=== PATIENT | female | born 2005 | race Caucasian/White ===

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

== ENCOUNTER 2024-10-17 17:43 | Emergency (ER) | payer OTHER, SELFPAY ==
--- OUTSIDE RECORDS SUMMARY | 2024-10-17 17:45 | XMS_ITS | Clinical Summary ---
Author Organization [facility] [employer] [facility] Address [address] [place] [id number] Care Team Providers Care Business Architect Name Role Phone Rebecca Snell Primary Care Provider Allergies No known active allergies Medications citalopram (CELEXA) 20 mg tabletIndicatio ns:FLAKO (generalized anxiety disorder),MDD (major depressive disorder), recurrent episode, moderate (HC) Take 1 Tablet (20 mg) by mouth once daily in the morning. 90 Tablet 3 06/20/2024 Active hydrOXYzine HCL (ATARAX) 25 mg tabletIndicatio ns:FLAKO (generalized anxiety disorder),MDD (major depressive disorder), recurrent episode, moderate (HC),Difficulty staying asleep Take 1 Tablet (25 mg) by mouth at bedtime if needed for Anxiety (sleep). 90 Tablet 3 06/20/2024 Active Active Problems No known active problems Encounters Date Type Department Care Team Description 09/22/2024 10:05 AM CDT Ancillary Procedure [facility] [address] [place] [address] 09/22/2024 9:40 AM CDT Office Visit [facility] [address] [place], [place] [id number] Carlton Gruber MD Wrist Pain/problem (right) 09/21/2024 Travel 08/08/2024 9:35 AM MACHINE CHAIN MAKER Office Visit [facility] [address] [place] [address] Rebecca Snell PA Conjunctivitis (right eye x1 day) 08/07/2024 Travel from Last 3 Months Immunizations Immunization Administration Dates Next Due [id number] (Pediarix) 03/09/2004,01/13/2004 DTaP-IPV (Kinrix) 01/28/2009 HIB PRP-OMP (PedvaxHIB) 06/01/2004,03/09/2004 HPV 9 (Gardasil 9) 06/12/2023,10/22/2017 Hepatitis B (Adult) 01/31/2024 Hib Conjugate, Unspecified 01/13/2004 Influenza Virus, Unspecified 01/28/2009,06/05/20 07,07/23/2006 MENINGOCOCCAL VACCINE 2 VIAL [id number] (MENVEO) 01/13/2016 MMR 01/28/2009,11/10/2004 Meningococcal Vaccine (Menactra) 03/31/2021 Pneumococcal conj 7-Valent (Prevnar 7) 4,03/09/2004,01/13/2004 Tdap 01/13/2016 Tuberculin (PPD) 02/12/2024,01/22/2024 Varicella Vaccine 01/28/2009,11/10/2004 Family History Medical History Relation Name Comments No Known Problems Brother No Known Problems Father No Known Problems Mother No Known Problems Sister Relation Name Status Comments Brother Father Mother Sister Social History Tobacco Use Types Packs/Day Years Used Date Smoking Tobacco: Never Passive Smoke Exposure: Never Smokeless Tobacco: Never Tobacco Cessation:Counseling Given: Not Answered Alcohol Use Standard Drinks/Week Comments Yes 0 (1 standard drink = 0.6 oz pur e alcohol) rare PHQ-2 Answer Date Recorded PHQ-2 TOTAL SCORE 3 09/25/2024 Social Connections Answer Date Recorded Do you often feel lonely or isolated from those around you? 0 09/22/2024 Financial Resource Strain Answer Date R ecorded Difficulty of Paying Living Expenses 3 09/22/2024 Difficulty of Paying Living Expenses Not on file 09/22/2024 Food Insecurity Answer Date Recorded Do you worry your food will run out before you are able to buy more? 1 09/22/2024 Transportation Needs Answer Date Record ed Does lack of transportation keep you from medica l appointments? 1 09/22/2024 Does lack of transportation keep you from work, meetings or getting things that you need? 1 09/22/2024 Housing Stability Answer Date Recorded What is your housing situation today? 1 09/22/2024 Utilities Answer Date Recorded Do you have trouble paying f or utilities (for example, heat, electricity, water, phone)? 1 09/22/2024 Comments No Sex and Gender Information Value Date Recorded Sex Assigned at Not on file Legal Sex Female 10:36 AM CDT Gender Identity Not on file Sexual Orientation Not on file Obstetrics History Last Filed Vital Signs Vital Sign Reading Time Taken Comments Blood Pressure 110/70 09/22/2024 9:45 AM CDT Pulse 78 09/22/2024 9:45 AM CDT Temperature 36.9 C (98.4 F) 08/08/2024 9:36 AM MACHINE CHAIN MAKER Respiratory Rate 16 06/12/2023 12:59 PM MACHINE CHAIN MAKER Oxygen Saturation 98% 08/08/2024 9:36 AM MACHINE CHAIN MAKER Inhaled Oxygen Concentration - - Weight 57.6 kg (127 lb) 09/22/2024 9:45 AM CDT w ith shoes Height 160 cm (5' 2.99) 09/22/2024 9:45 AM CDT Body Mass Index 22.5 09/22/2024 9:45 AM CDT Plan of Treatment Health Maintenance Due Date Last Done Comments COVID-19 vaccine series ( season) 2024 08/23/2021, 08/01/2021 Chlamydia for age 16-24 04/02/2024 04/02/20 23 ([facility] Well Child Check for age 3-20 06/12/2024 06/12/2023 Influenza Vaccine (Season Ended) 2025 01/28/2009, 06/05/2007, 07/23/2006 BMI (ht and wt on same day) for age 18+ 09/22/2025 09/22/2024, 06/20/2024, 07/12/2023, Additional history exists Depression screening for age 12+ 09/25/2025 09/25/2024, 06/20/2024, 02/14/2024, Additional history exists Tetanus booster 01/12/2026 01/13/2016 Pneumococcal series for age 6-49 Aged Out 06/01/2004, 03/09/2004, 01/13/2004 No longer eligible based on patient's age to complete this topic Tdap Completed 01/13/2016 Meningococcal series for age 11-21 Completed 03/31/2021, 01/13/2016 HIV for age 15-65 Completed 06/12/2023 HPV series for age 9-26 Completed 06/12/2023, 10/22 Hepatitis C screening for age 18-79 Completed 06/12/2023 Procedures Procedure Name Priority Date/Time Associated Diagnosis Comments XR WRIST 3 VIEWS RIGHT Routine 09/22/2024 10:09 AM CDT Right wrist pain ANTI HIV 1/2 Routine 06/12/2023 1:46 PM MACHINE CHAIN MAKER Screening for HIV (human immunodeficiency virus) ANTI HCV Routine 06/12/2023 1:46 PM MACHINE CHAIN MAKER Need for hepatitis C screening test from Last 3 Months or Most Recently Relevant to Health Maintenance Results * XR WRIST 3 OR MORE VIEWS RIGHT (09/22/2024 10:09 AM CDT) Anatomical Region Laterality Modality WRISTS, WRIST R Computed Radiogr aphy 09/23/2024 6:08 AM CDT Impressions 09/23/2024 6:08 AM CDT 1. No acute fracture or malalignment. 2. Joint spaces are maintained. Dictated by Rolando Chambers MD @ 09/23/2024 6:08:25 AM (Electronically Signed) Narrative 09/23/2024 6:08 AM CDT For Patients: As a result of the Cures Act, medical imaging exams and procedure reports are released immediately into your electronic medical record. You may view this report before your referring provider. If you have questions, please contact your health care provider. HISTORY: Right wrist pain. TECHNIQUE: Three views of the right wrist. COMPARISON: No prior. FINDINGS: No acute fracture or malalignment. Joint spaces are maintained. No erosive change or chondrocalcinosis. Procedure Note Rolando Chambers MD - 09/23/2024 For Patients: As a result of the Century Cures Act, medical imagingexams and procedure reports are released immediately into your electronicmedical record. You may view this report before your referring provider.If you have questions, please contact your health care provider. HISTORY: Right wrist pain. TECHNIQUE: Three views of the right wrist. COMPARISON: No prior. FINDINGS: No acute fracture or malalignment. Joint spaces are maintained. No erosivechange or chondrocalcinosis. IMPRESSION: 1. No acute fracture or malalignment. 2. Joint spaces are maintained. Dictated by Rolando Chambers MD @ 09/23/2024 6:08:25 AM (Electronically Signed) us Carlton Gruber MD GENERAL IMAGING Final Result * ANTI HCV (06/12/2023 1:46 PM MACHINE CHAIN MAKER) Pathologist [facility] [place] HEPATITIS C ANTIBODY Non-Reacti ve Non-React talib 06/12/2023 10:01 PM MACHINE CHAIN MAKER [facility] Comment:Please note, per www .CDC.gov: If a patient is known to be at high risk of HCV infection, or is symptomatic, and the physician's suspicion of HCV infection is high, HCV RNA testing is often employed and is of diagnostic value, even after an initial negative anti-HCV test result. Blood BLOOD SPECIMEN / Unknown Venipuncture / Unknown 06/12/2023 1:46 PM MACHINE CHAIN MAKER 06/12/2023 1:46 PM MACHINE CHAIN MAKER Rebecca DAWSON SEND OUTS Final Result [facility] [address] [place] [address], * ANTI HIV 1/2 [21449.0] (06/12/2023 1:46 PM MACHINE CHAIN MAKER) Pathologist [facility] [place] HIV-1/HIV-2 SCREEN Non-Reacti ve Non-Reacti ve 06/12/2023 9:35 PM MACHINE CHAIN MAKER [facility] Comment:HIV-1 p24 and HIV-1/ HIV-2 Ab Not Detected. Blood BLOOD SPECIMEN / Unknown Venipuncture / Unknown 06/12/2023 1:46 PM MACHINE CHAIN MAKER 06/12/2023 1:46 PM MACHINE CHAIN MAKER Rebecca DAWSON SEND OUTS Final Result [facility] [address] [place] [address], [place] from Last 3 Months or Most Recently Relevant to Health Maintenance Insurance Care Teams Business Architect Relationship Specialty [place] [address] [place] [address] PCP - General Physician Television Installer Helper 07/09/23
[2024-10-17 17:51] VITALS: BP 127/77; PULSE 83; RESP 22; TEMP 37; O2SAT 100; BMI 21.0
--- NOTE | 2024-10-17 18:13 | ED_ITS ---
HPI - Wound/Laceration General Chief Complaint: Laceration/Wound Stated Complaint: Cut on Left hand Time Seen by Provider: 10/17/24 17:48 History of Present Illness HPI narrative: This 18-year-old female comes in with her father because of an injury to her left index finger and left thumb. She was using a glass jug that broke and she has a laceration on the left index finger an a more superficial abrasion on the left thumb. She states that her tetanus status is up-to-date. Related Data Home Medications ?Medication ?Instructions ?Recorded ?Confirmed citalopram 20 mg tablet 20 mg PO QAM 10/17/24 10/17/24 Allergies Allergy/AdvReac Type Severity Reaction Status Date / Time No Known Drug Allergies Allergy Verified 01/03/22 12:38 Review of Systems Status of ROS: Reports: 10 or more systems reviewed and unremarkable except as noted in History and below Narrative: Constitutional: No fevers, no weight gain or loss. Eyes: No discharge. No vision changes. HENT: No congestion, no sore throat, no ear pain. Cardiovascular: No chest pain, no palpitations. Respiratory: No shortness of breath, no wheezes, no cough. Gastrointestinal: No abdominal pain, no vomiting, no diarrhea. Genitourinary: No dysuria, no hematuria. Musculoskeletal: Normal range of motion. Skin: No rashes, no pruritis. Neurological: No dizziness, weakness, sensory change, speech change. Endo/Heme/Allergies: No bruising or bleeding. No polydipsia. Pysch: no suicidality, no anxiety, no insomnia. All other systems reviewed and are negative. PFSH PFSH Family History (Updated 01/02/22 @ 15:43 by Bhavin Cuevas) Other Anxiety disorder Social History (Updated 01/02/22 @ 15:43 by Bhavin Cuevas) Narrative: Depo-Provera contraceptive status No secondhand smoke exposure Smoking Status: Never smoker Exam Narrative: Exam Narrative: Constitutional: Well-developed, well-nourished, no acute distress. HEENT: Normocephalic, atraumatic. Neck: Normal range of motion. Nontender. Supple. Heart: Intact distal pulses. Lungs: No chest discomfort. No wheezes, rhonchi, or rales. Abdomen: Nontender. Back: Normal range of motion. Extremities: Normal range of motion. Left index finger has a linear laceration that is 2.5 cm in length. There is a superficial abrasion on the left thumb. Skin: Intact. No rash. Warm. No erythema or pallor. Neurologic: No altered sensation. No weakness. Alert and oriented. Psychiatric: No suicidality. No anxiety or depression. No insomnia. Nursing notes and vitals signs are reviewed. Const: Vital Signs, click to edit/add: Vital Signs - 24 hr 10/17/24 17:51 Temperature 98.6 F Pulse Rate [Pulse Oximeter] 83 Respiratory Rate 22 Blood Pressure [Ri t Upper Arm] 127/77 Pulse Oximetry 100 Oxygen Delivery Me thod Room Air Course Vital Signs Vital signs: Initial Vital Signs Temperature 98.6 F 10/17/24 17:51 Temperature Source Temporal Artery Scan 10/17/24 17:51 Pulse Rate 83 10/17/24 17:51 Respiratory Rate 22 10/17/24 17:51 Blood Pressure 127/77 10/17/24 17:51 Blood Pressure Mean 93 10/17/24 17:51 Blood Pressure Position Sitting 10/17/24 17:51 Pulse Oximetry 100 10/17/24 17:51 Oxygen Delivery Method Room Air 10/17/24 17:51 Vital Signs Temperature 98.6 F 10/17/24 17:51 Pulse Rate 83 10/17/24 17:51 Respiratory Rate 22 10/17/24 17:51 Blood Pressure 127/77 10/17/24 17:51 Pulse Oximetry 100 10/17/24 17:51 Oxygen Delivery Method Room Air 10/17/24 17:51 Temperature 98.6 F 10/17/24 17:51 Pulse Rate 83 10/17/24 17:51 Respiratory Rate 22 10/17/24 17:51 Blood Pressure 127/77 10/17/24 17:51 Pulse Oximetry 100 10/17/24 17:51 Oxygen Delivery Method Room Air 10/17/24 17:51 MDM - Wound/Laceration MDM Narrative Medical decision making narrative: This patient comes in with a laceration on her left index finger that would benefit from repair. I did state options including suture repair or Dermabond repair. She elected to have Dermabond repair. I 1st placed a ring exsanguinated her to create a bloodless field. The skin edges are nicely approximated. The wound was cleansed and then Dermabond was applied with excellent results. This was followed by 2 Band-Aids to also splint the finger in that area of injury. The exsanguinated her was then removed and there was no sign of active bleeding. Dermabond was also applied to the superficial wound on her thumb and a Band-Aid applied there also. Instructions regarding wound care were given. Discharge Plan Discharge Clinical Impression: Laceration Patient Disposition: Home, Self-Care Condition: Improved Additional Instructions: Keep wound clean and dry. Increase activity as tolerated. Follow up with MD return if worsening. Prescriptions: No Action citalopram 20 mg tablet 20 mg PO QAM Follow Up/Referrals: Provider,Not a Local [Primary Care Provider] - Stand Alone Forms: [employer]Pad Info Instructions
--- OUTSIDE RECORDS SUMMARY | 2024-10-17 18:29 | XMS_ITS | Clinical Summary ---
Author Organization [facility] [employer] [facility] Address [address] [place] [address] Care Team Providers Care Manager Process Excellence Name Role Phone Rebecca Snell Primary Care [...] Description 09/22/2024 10:05 AM CDT Ancillary Procedure [facility] [address] [place] [address] 09/22/2024 9:40 AM CDT Office Visit [facility] [address] [place], [place] [phone] Carlton Gruber MD Wrist Pain/problem (right) 09/21/2024 Travel 08/08/2024 9:35 AM DOOR LINER Office Visit [facility] [address] [place] [address] Rebecca Snell PA Conjunctivitis (right eye x1 day) 08/07/2024 Travel from Last 3 Months Immunizations Immunization Administration Dates Next Due [id number] (Pediarix) 03/09/2004,01/13/2004 DTaP-IPV (Kinrix) 01/28/2009 HIB PRP-OMP [...] 36.9 C (98.4 F) 08/08/2024 9:36 AM DOOR LINER Respiratory Rate 16 06/12/2023 12:59 PM DOOR LINER Oxygen Saturation 98% 08/08/2024 9:36 AM DOOR LINER Inhaled Oxygen Concentration - - Weight 57.6 kg (127 lb) 09/22/2024 9:45 AM CDT w ith shoes Height 160 cm (5' 2.99) 09/22/2024 9:45 AM CDT Body Mass Index 22.5 09/22/2024 9:45 AM CDT Plan of Treatment Health Maintenance Due Date Last Done Comments COVID-19 vaccine series ( season) 2024 08/23/2021, 08/01/2021 Chlamydia for age 16-24 04/02/2024 04/02/20 23 ([facility] Well Child Check for age 3-20 06/12/2024 [...] ANTI HIV 1/2 Routine 06/12/2023 1:46 PM DOOR LINER Screening for HIV (human immunodeficiency virus) ANTI HCV Routine 06/12/2023 1:46 PM DOOR LINER Need for hepatitis C screening test from [...] Result * ANTI HCV (06/12/2023 1:46 PM DOOR LINER) Pathologist [facility] [place] HEPATITIS C ANTIBODY Non-Reacti ve Non-React talib 06/12/2023 10:01 PM DOOR LINER [facility] Comment:Please note, per www .CDC.gov: If a patient is known to be at high risk of HCV infection, or is symptomatic, and the physician's suspicion of HCV infection is high, HCV RNA testing is often employed and is of diagnostic value, even after an initial negative anti-HCV test result. Blood BLOOD SPECIMEN / Unknown Venipuncture / Unknown 06/12/2023 1:46 PM DOOR LINER 06/12/2023 1:46 PM DOOR LINER Rebecca DAWSON SEND OUTS Final Result [facility] [address] [place] [address], * ANTI HIV 1/2 [62850.0] (06/12/2023 1:46 PM DOOR LINER) Pathologist [facility] [place] HIV-1/HIV-2 SCREEN Non-Reacti ve Non-Reacti ve 06/12/2023 9:35 PM DOOR LINER [facility] Comment:HIV-1 p24 and HIV-1/ HIV-2 Ab Not Detected. Blood BLOOD SPECIMEN / Unknown Venipuncture / Unknown 06/12/2023 1:46 PM DOOR LINER 06/12/2023 1:46 PM DOOR LINER Rebecca DAWSON SEND OUTS Final Result [facility] [address] [place] [address], [place] from Last 3 Months or Most Recently Relevant to Health Maintenance Insurance Care Teams Manager Process Excellence Relationship Specialty [place] [address] [place] [address] PCP - General Physician Logging Worker 07/09/23
== END 2024-10-17 18:32 | disposition home or self-care (01) ==
LOC: ED 18:27
PROVIDERS: Emergency Provider Emergency Medicine Emergency Medical Services
DX: S61.211A Laceration without foreign body of left index finger without damage to nail, initial encounter (principal); S61.012A Laceration without foreign body of left thumb without damage to nail, initial encounter; W25.XXXA Contact with sharp glass, initial encounter
CPT/HCPCS: 12001; 99282; 99284